=== PATIENT | male | born 1945 | race Caucasian/White ===

== ENCOUNTER 2016-11-23 09:06 | Observation (INO) | payer OTHER ==
[~2016-11-23 09:06] MED LIST: ACETAMINOPHEN 500 MG TAB PO ONE; DEXAMETHASONE 10 MG/ML VIAL IVP ONE; GABAPENTIN 300 MG CAP PO ONE; ceFAZolin 2 GM/DEXTROSE 100 ML IV ONE
[2016-11-23] MEDS ORDERED: LR 1,000 ML IV ONE (09:35)
[2016-11-23] MEDS ORDERED: PROPOFOL/EMULSION 500 MG/50 ML BOTTLE IV ONE (09:50)
[2016-11-23] MEDS ORDERED: fentaNYL 100 MCG/2 ML INJ ONE (09:50)
[2016-11-23] MEDS ORDERED: REMIFENTANIL HCL 1 MG VIAL ONE ×3 (09:50→14:37)
[2016-11-23] MEDS ORDERED: PROPOFOL 200 MG/20 ML VIAL ONE ×5 (09:51→13:53)
[2016-11-23] MEDS ORDERED: DEXAMETHASONE 4 MG/ML VIAL ONE (09:54)
[2016-11-23] MEDS ORDERED: LIDOCAINE 2% 5 ML SDV ONE (09:54)
[2016-11-23] MEDS ORDERED: SUCCINYLCHOLINE CHLORIDE*ANESTHESIA ONLY*200 MG/10 ML SYR IVP ONE (09:54)
--- NOTE | 2016-11-23 10:00 | PDANEPAE ---
ANE History of Present Illness low back pain, sciatica ANE Past Medical History - Cardiovascular History Hx Hypertension: No Hx Arrhythmias: No Hx Chest Pain: No Hx Coronary Artery / Peripheral Vascular Disease: No Hx CHF / Valvular Disease: No Hx Palpitations: No Cardiovascular History Comment: HYPERLIPIDEMIA - Pulmonary History Hx COPD: No Hx Asthma/Reactive Airway Disease: No Hx Recent Upper Respiratory Infection: No Hx Oxygen in Use at Home: No Hx Sleep Apnea: No Sleep Apnea Screening Result - Last Documented: Negative - Neurologic History Hx Cerebrovascular Accident: No Hx Seizures: No Hx Dementia: No Neurologic History Comment: P[facility]IN[facility] DX 2012 - Endocrine History Hx Diabetes: No Endocrine History Comment: HYPOTHYROID - Renal History Hx Renal Disorders: Yes Renal History Comment: BPH. NOCTURIA - Liver History Hx Hepatic Disorders: No - Neurological & Psychiatric Hx Hx Neurological and Psychiatric Disorders: No - Cancer History Hx Cancer: No - Congenital Disorder History Hx Congenital Disorders: No - GI History Hx Gastrointestinal Disorders: Yes Gastrointestinal History Comment: CONSTIPATION - Other Health History Other Health History: NEG - Chronic Pain History Chronic Pain: Yes (SCIATICA) - Surgical History Prior Surgeries: KNEE SCOPE. RT SHLDR ROTATOR CUFF X2. RT BICEPS TENDON. TONSILLECTOMY ANE Review of Systems - Exercise capacity METS (RN): 4 METS ANE Patient History - Allergies Allergies/Adverse Reactions: Penicillins Allergy (Verified 11/22/16 13:10) Unknown tramadol Allergy (Verified 11/22/16 13:10) Other-Enter Comments - Home Medications Home medications: home medication list seen and reviewed Home Medications: Potassium Cl [Klor-Con] 02/03/15 [Last Taken 02/16/15] RX: Carbidopa/Levodopa [Carbidopa-Levodopa 25-100 Tab] 02/03/15 [Last Taken 08:00] RX: Finasteride [Proscar 5 MG (*)] 02/03/15 [Last Taken 02/16/15 22:00] RX: Levothyroxine [Synthroid 75 mcg (*)] 02/03/15 [Last Taken 02/16/15 22:00] RX: Selegiline HCl [Eldepryl 5mg (*)] 02/03/15 [Last Taken 02/16/15 13:30] RX: Simvastatin [Zocor] 02/03/15 [Last Taken 02/16/15 22:00] RX: rOPINIRole HCL [Requip] 02/03/15 [Last Taken 02/16/15 13:30] Aleve 10/27/16 [Last Taken Unknown] Bisacodyl 10/27/16 [Last Taken Unknown] Ibuprofen 10/27/16 [Last Taken Unknown] Tamsulosin HCl 10/27/16 [Last Taken Unknown] Trazodone HCl 10/27/16 [Last Taken Unknown] - NPO status NPO Since - Liquids (Date): 11/22/16 NPO Since - Liquids (Time): 21:00 NPO Since - Solids (Date): 11/22/16 NPO Since - Solids (Time): 21:00 - Anes Hx Anes Hx: no prior problems - Smoking Hx Smoking Status: Never smoked ANE Labs/Vital Signs - Vital Signs Blood Pressure: 102/64 Heart Rate: 60 Respiratory Rate: 16 O2 Sat (%): 93 Height: 185.42 cm Weight: 83.915 kg ANE Physical Exam - Airway Neck exam: FROM Mallampati Score: Class 2 Mouth exam: normal dental/mouth exam, dentures - Pulmonary Pulmonary: no respiratory distress - Cardiovascular Cardiovascular: regular rate and rhythym - ASA Status ASA Status: III ANE Anesthesia Plan Anesthesia Plan: general endotracheal anesthesia
[2016-11-23] MEDS ORDERED: THROMBIN (BOVINE) 5,000 UNIT VIAL TP ONE (10:01)
[2016-11-23] MEDS ORDERED: CHLORHEXIDINE GLUC HIBICLENS 118 ML BTL TP ONE (10:01)
[2016-11-23] MEDS ORDERED: BUPIVACAINE/EPI 0.25% 30 ML SDV ONE ×3 (10:01→14:51)
[2016-11-23] MEDS ORDERED: BACITRACIN 50,000 UNITS/10 ML SYR IRR ONE ×2 (10:01→10:55)
[2016-11-23] MEDS ORDERED: MIDAZOLAM 2 MG/2 ML VIAL IVP ONE (10:02)
[2016-11-23] MEDS ORDERED: PHENYLEPHRINE 10 MG/ML SDV ONE (10:13)
[2016-11-23] MEDS ORDERED: ONDANSETRON 4 MG/2 ML VIAL ONE (10:15)
[2016-11-23] MEDS ORDERED: ROCURONIUM 50 MG/5 ML VIAL ONE ×2 (10:19)
--- NOTE | 2016-11-23 10:32 | PDHPUP ---
History & Physical Update H&P update statement: This history and physical update is based on an assessment of the patient which was completed after admission or registration (within 24 hours), but prior to the surgery/procedure. H&P update: no change in patient's condition since H&P completed
[2016-11-23] MEDS ORDERED: epHEDrine SULFATE 10 MG/ML SYR ONE (12:10)
[2016-11-23] MEDS ORDERED: HYDROmorphONE/DILAUDID 2 MG/ML INJ ONE (13:38)
[2016-11-23] MEDS ORDERED: ceFAZolin 1 GM VIAL ONE ×2 (14:28→14:48)
[2016-11-23] MEDS ORDERED: MAGNESIUM HYDROXIDE 30 ML UDCUP PO PRN (15:11)
[2016-11-23] MEDS ORDERED: ONDANSETRON DISINTEGRATING 4 MG TAB PO PRN (15:11)
[2016-11-23] MEDS ORDERED: LACTULOSE 20 GM/30 ML UDCUP PO PRN (15:11)
[2016-11-23] MEDS ORDERED: oxyCODONE IR 5 MG TAB PO PRN (15:11)
[2016-11-23] MEDS ORDERED: diphenhydrAMINE 25 MG CAP PO PRN (15:11)
[2016-11-23] MEDS ORDERED: ONDANSETRON 4 MG/2 ML VIAL IVP PRN (15:11)
[2016-11-23] MEDS ORDERED: METHOCARBAMOL 750 MG TAB PO PRN (15:11)
[2016-11-23] MEDS ORDERED: BISACODYL 10 MG SUPP PR PRN (15:11)
[2016-11-23] MEDS ORDERED: NS 1,000 ML IV SCH (15:15)
--- NOTE | 2016-11-23 15:18 | POSTOPPROG ---
Post Op Note Date of Operation: 11/23/16 Surgeon: Frantz Vega [employer] Ticketer: [place] Anesthesiologist: Natalia Anesthesia: GET(General Endotracheal) Pre-op Diagnosis: L1-S1 stenosis Post-op Diagnosis: same Indication: left lef pain Procedure: L1-S1 left sided microdecompression Findings: stenosis Inf/Abcess present in the surg proc area at time of surgery?: No EBL: 100-500 Total fluids administered: 1500ml Complications: none Drains: Eze Perez (to bulb suction)
[2016-11-23] MEDS ORDERED: fentaNYL 100 MCG/2 ML INJ IVP PRN (15:20)
[2016-11-23] MEDS ORDERED: HYDROmorphONE/DILAUDID 1 MG/ML SYR IVP PRN (15:20)
[2016-11-23] MEDS ORDERED: NALOXONE HCL 0.4 MG/ML INJ IVP PRN (15:20)
[2016-11-23] MEDS ORDERED: LABETALOL HCL 5 MG/ML 20 ML MDV IVP PRN (15:20)
[2016-11-23] MEDS ORDERED: LR 500 ML IV PRN (15:20)
--- NOTE | 2016-11-23 15:20 | POSTANESTH ---
Post Anesthetic Evaluation Cardiovascular Status: Normal, Stable Respiratory Status: Normal, Stable Level of Consciousness/Mental Status: Can Participate in Eval Pain Control: Adequate, Prn Tx Ordered Nausea/Vomiting Control: Adequate, Prn Tx Ordered Complications Possibly Related to Anesthesia: None Noted
--- NOTE | 2016-11-23 15:22 | SOAPPROG ---
SOAP Progress Note Assessment/Plan: POST OP CHECK: Assessment: doing well s/p L1-S1 microdecompression Plan: CPM in PACU Keep JAIME to bulb suction HOB as tolerated 11/23/16 15:19 Subjective: awake, comfortable. Objective: Vital Signs Temp Pulse Resp BP Pulse Ox 36.4 C 60 16 102/64 93 11/23/16 09:34 11/23/16 10:00 11/23/16 10:00 11/23/16 10:00 11/23/16 10:00 HR: 87 BP: 100/61 O2: 100% FM Neuro: CADE to command sens+LT throughout ICD10 Worksheet Patient Problems: Problems Problem Status Onset Hx of decompressive lumbar laminectomy Acute
[2016-11-23] MEDS: POLYETHYLENE GLYCOL 3350 17 GM PKT PO SCH ×2 (17:16→22:31)
--- NOTE | 2016-11-23 17:18 | GOP ---
[f rep st] OPERATIVE REPORT DATE OF OPERATION: 11/23/2016 SURGEON: Frantz Vega MD NEUROSURGEON: Frantz Vega MD. ASSOCIATE TRAINER: MARGARET Emery. ANESTHESIA: General endotracheal. PREOPERATIVE DIAGNOSIS: 1. Multilevel lumbar stenosis. 2. Intractable neurogenic claudication. 3. Left lower extremity radicular discomfort. 4. Failed conservative care. POSTOPERATIVE DIAGNOSIS: 1. Multilevel lumbar stenosis. 2. Intractable neurogenic claudication. 3. Left lower extremity radicular discomfort. 4. Failed conservative care. PROCEDURE PERFORMED: Left-sided L1-2, L2-3, L3-4, L4-5, and L5-S1 posterior hemilaminectomy, medial facetectomy, foraminotomy, and bilateral decompression of central canal. Use of intraoperative hu roscopy and fluoroscopy. FINDINGS: ESTIMATED BLOOD LOSS: 150 cc. INDICATIONS: The patient is a 71-year-old man with intractable left lower extremity radicular sympt oms and neurogenic claudication secondary to recurrent multilevel lumbar stenosis and lateral recess impingement, status post prior multilevel lumbar decompression. He presents now for surgical decom pression after failing conservative care. DESCRIPTION OF PROCEDURE: After informed consent was obtained, the patient was taken to the operati ng room and placed in a prone position on the Markus frame. The lumbosacral area was prepped and dr aped in sterile fashion. After fluoroscopic localization of the correct levels, the subcutaneous an d intramuscular tissues were infiltrated with local anesthesia. A midline linear incision was then created from approximately L1 through S1. This was carried down to the fascial layer, which was inc ised using the monopolar electrocautery and carried in a subperiosteal plane along the spinous proce sses and out the lamina on the left. Intraoperative fluoroscopy was utilized to verify the correct levels. Following this, left-sided posterior hemilaminectomy defects were created at each of the in dividual levels starting at L1-2, then L2-3, then L3-4, then L4-5, then L5-S1, during which time, me dial facetectomies were performed and undercutting of the spinous processes. A couple of the spinou s processes were already fractured and these were removed. Lateral recess decompressions were perfo rmed and foraminotomies at each level. There was an extensive amount of scar tissue from the prior surgery, which required meticulous dissection under high-power microscopy for an extended period of time. Overall, the case took approximately twice as long as normal because of all this. Following adequate decompression at each and every level, the wound was copiously irrigated with antibiotic ir rigation and meticulous hemostasis was achieved. A drain was placed. The subcutaneous and intramus cular tissues were re-infiltrated with local anesthesia and the wound was closed in a layered fashio n using interrupted Vicryl sutures followed by Steri-Strips on the skin. COMPLICATIONS: None. DISPOSITION: The patient was extubated and transferred to the recovery room in stable condition. /[id number]/MODL
[2016-11-23] MEDS: CARBIDOPA/LEVODOPA 25 MG/100 MG TAB PO SCH (18:10)
[2016-11-23] MEDS: ceFAZolin 2 GM/DEXTROSE 100 ML IV SCH (18:11)
[2016-11-23] MEDS ORDERED: CARBIDOPA/LEVODOPA 25 MG/100 MG TAB PO SCH (22:30)
[2016-11-23] MEDS ORDERED: POTASSIUM CL 10 MEQ TAB PO SCH (22:30)
[2016-11-23] MEDS ORDERED: TAMSULOSIN HCL 0.4 MG CAP PO SCH (22:30)
[2016-11-23] MEDS ORDERED: ATORVASTATIN CALCIUM 40 MG TAB PO SCH (22:30)
[2016-11-23] MEDS ORDERED: LEVOTHYROXINE 75 MCG TAB PO SCH (22:30)
[2016-11-23] MEDS ORDERED: FINASTERIDE 5 MG TAB PO SCH (22:30)
[2016-11-23] MEDS ORDERED: Plecanatide [Trulance] 3 MG PO SCH (22:30)
[2016-11-23] MEDS: ACETAMINOPHEN 500 MG TAB PO SCH (22:31)
[2016-11-23] MEDS: SENNOSIDES/DOCUSATE SODIUM TAB PO SCH (22:31)
[2016-11-23] MEDS: FAMOTIDINE 20 MG TAB PO SCH (22:31)
[2016-11-24] MEDS: CARBIDOPA/LEVODOPA 25 MG/100 MG TAB PO SCH ×3 (04:12→12:14)
[2016-11-24] MEDS: ACETAMINOPHEN 500 MG TAB PO SCH (04:15)
[2016-11-24] MEDS: ceFAZolin 2 GM/DEXTROSE 100 ML IV SCH (04:18)
[2016-11-24 05:12] LABS: % IMMATURE GRANULYOCYTES 0.5 % (0.0-1.1); ABSOLUTE IMMATURE GRANULOCYTES 0.06 10^3/uL (0.00-0.10); ADD DIFF? NO; ADD MORPH? NO; ADD SCAN? NO; ATYPICAL LYMPHOCYTE FLAG 0 (0-99); FRAGMENT RBC FLAG 0 (0-99); HEMATOCRIT 42.5 % (40.0-51.0); HEMOGLOBIN 14.6 g/dL (13.7-17.5); LEFT SHIFT FLG 0 (0-99); LIPEMIA HEMOLYSIS FLAG 90 (0-99); MEAN CELL HEMOGLOBIN 31.5 pg (27.9-34.1); MEAN CELL HEMOGLOBIN CONCENTR. 34.4 g/dL (32.4-36.7); MEAN CELL VOLUME 91.6 fL (81.5-99.8); MEAN PLATELET VOLUME 10.4 fL (8.7-11.7); PLATELET CLUMPS FLAG 0 (0-99); PLATELET COUNT 202 10^3/uL (150-400); RED BLOOD CELL COUNT 4.64 10^6/uL (4.40-6.38)
[2016-11-24 05:27] LABS: ANION GAP 9 mEq/L (8-16); CALCIUM 9.3 mg/dL (8.5-10.4); CARBON DIOXIDE 25 mEq/l (22-31); CHLORIDE 103 mEq/L (97-110); CREATININE 1.2 mg/dL (0.7-1.3); GLOMERULAR FILTRATION RATE 59; GLUCOSE 99 mg/dL (70-100); POTASSIUM 4.7 mEq/L (3.5-5.2); SODIUM 137 mEq/L (134-144)
--- NOTE | 2016-11-24 07:51 | SOAPPROG ---
SOAP Progress Note Assessment/Plan: : Assessment: POD #1 doing well s/p L1-S1 microdecompression he reports 0/10 pain can't tell if surgery helped his left leg pain Plan: advance activity with PT/OT Continue JAIME drain DC planning for today 11/24/16 07:51 Subjective: awake, alert, pain controlled states he has 0/10 pain today ambulated hallway already this AM can't tell if surgery helped his left leg pain Objective: Vital Signs Temp Pulse Resp BP Pulse Ox 36.6 C 49 L 14 159/78 H 94 11/24/16 07:33 11/24/16 07:33 11/24/16 07:33 11/24/16 07:33 11/24/16 07:33 Laboratory Results 11/24/16 04:30 11/24/16 04:30 11/23/16 11/24/16 11/25/16 05:59 05:59 05:59 Intake Total 2965 Output Total 835 Balance 2130 Neuro: CADE, sens +LT ambulatory Dressing: Dried blood JAIME: 385ml ICD10 Worksheet Patient Problems: Problems Problem Status Onset Hx of decompressive lumbar laminectomy Acute
[2016-11-24] MEDS: POLYETHYLENE GLYCOL 3350 17 GM PKT PO SCH (07:56)
[2016-11-24] MEDS: FAMOTIDINE 20 MG TAB PO SCH (07:57)
[2016-11-24] MEDS: SENNOSIDES/DOCUSATE SODIUM TAB PO SCH (07:57)
[2016-11-24] MEDS: SELEGILINE HCL 5 MG CAP PO SCH ×2 (07:58→12:15)
[2016-11-24] MEDS ORDERED: ENOXAPARIN 40 MG/0.4 ML SYR SC SCH (09:00)
[2016-11-24 12:03] VITALS: BP 100/60; PULSE 47; RESP 12; TEMP 97.6; O2SAT 95
[2016-11-24] MEDS ORDERED: DIAZEPAM 10 MG/2 ML SYR IVP ONE (12:15)
== END 2016-11-24 14:16 | disposition home or self-care (01) ==
LOC: FSGY 09:06 → INTOOBSV 15:11 → F3N 15:11
PROVIDERS: ADMIT Neurological Surgery; ATTEND Neurological Surgery
PROC: 00NY0ZZ Release Lumbar Spinal Cord, Open Approach (ICD-10-PCS; principal; 2016-11-23 10:15)
PROC: B01B1ZZ Fluoroscopy of Spinal Cord using Low Osmolar Contrast (ICD-10-PCS; principal; 2016-11-23 10:15)
DX: M48.06 Spinal stenosis, lumbar region (principal); G20 Parkinson's disease; G56.01 Carpal tunnel syndrome, right upper limb; M50.30 Other cervical disc degeneration, unspecified cervical region; F41.9 Anxiety disorder, unspecified; Z88.0 Allergy status to penicillin
CPT/HCPCS: 63047; 63048; 76001; 97162; 97165; G8978; G8979; G8980; G8987; G8988; J0330; J0690; J1100; J1170; J1650; J2250; J2370; J2405; J2704; J3010